=== PATIENT | male | born 1955 | race Caucasian/White ===

== ENCOUNTER → 2016-09-15 | Outpatient (CLI) | payer OTHER ==
[~2016-09-15] MED LIST: ADVIL200 MG PO; COLACE100 MG PO; PERCOCET 5/31 TABLET PO
== END | disposition home or self-care (01) ==
LOC: CDC 09:53
DX: Z01.810 Encounter for preprocedural cardiovascular examination (principal); R00.1 Bradycardia, unspecified; K40.90 Unilateral inguinal hernia, without obstruction or gangrene, not specified as recurrent
CPT/HCPCS: 93000

== ENCOUNTER 2016-09-18 09:19 | Day surgery (SDC) | payer OTHER ==
[~2016-09-18] VITALS: Ht 188 cm; Wt 72.7 kg
[~2016-09-18 09:19] MED LIST changes: -COLACE100 MG PO; -PERCOCET 5/31 TABLET PO
[2016-09-18 09:49] VITALS: BP 134/68
[2016-09-18] MEDS ORDERED: COLACE100 MG PO (14:38)
[2016-09-18] MEDS ORDERED: PERCOCET 5/31 TABLET PO (14:38)
[2016-09-18 16:10] VITALS: BP 187/81
[2016-09-18 17:00] VITALS: BP 158/62
== END 2016-09-18 17:25 | disposition home or self-care (01) ==
LOC: SDC
PROC: 0YQ54ZZ Repair Right Inguinal Region, Percutaneous Endoscopic Approach (ICD-10-PCS; principal; 2016-09-18)
DX: K40.90 Unilateral inguinal hernia, without obstruction or gangrene, not specified as recurrent (principal); F17.200 Nicotine dependence, unspecified, uncomplicated
CPT/HCPCS: C1727; C1781; J0330; J0690; J1100; J1170; J2250; J2405; J2710; J3010